=== PATIENT | female | born 1995 | race Caucasian/White ===

== ENCOUNTER 2016-07-14 21:02 | Emergency (ER) | payer MEDICAID ==
--- NOTE | 2016-07-14 21:46 | C.PDOC ---
History Of Present Illness GEN PARRA SINCE 1400. "WORSE THAN USUAL". +NV NO FEVER. NO RELIEF W TYL 1 TAB AND MOTRIN 1 TAB @ 1700. PS GETS PARRA "ONCE IN A BLUE" EXAM MILD DIST NONTOXIC HEENT NO PHOTOPHOBIA NO NUCHAL RIGID NEURO INTACT ABD NEG Time Seen by Provider: 07/14/16 21:30 Chief Complaint (Nursing): Headache History Per: Patient History/Exam Limitations: no limitations Onset/Duration Of Symptoms: Hrs Current Symptoms Are (Timing): Still Present Quality: "Pain" Associated Symptoms: Nausea, Vomiting. denies: Photophobia, Blurred Vision, Extremity Weakness Recent travel outside of the [place]: No Past Medical History Reviewed: Historical Data, Nursing Documentation, Vital Signs Vital Signs: Last Vital Signs Temp 98 F 07/14/16 21:28 Pulse 86 07/14/16 21:45 Resp 18 07/14/16 21:45 BP 122/68 07/14/16 21:45 Pulse Ox 99 07/14/16 22:46 Surgical History: Appendectomy Family History: States: Unknown Family Hx - Social History Hx Tobacco Use: No Hx Alcohol Use: Yes Hx Substance Use: No - Immunization History Hx Tetanus Toxoid Vaccination: No Hx Influenza Vaccination: No Hx Pneumococcal Vaccination: No Review Of Systems Except As Marked, All Systems Reviewed And Found Negative. Constitutional: Negative for: Fever, Chills Respiratory: Negative for: Cough, Shortness of Breath Gastrointestinal: Positive for: Nausea, Vomiting. Negative for: Abdominal Pain Skin: Negative for: Rash Neurological: Positive for: Headache. Negative for: Weakness, Numbness, Dizziness Physical Exam - Physical Exam Appears: Non-toxic, Other (MILD DISTRESS) Skin: Normal Color, Warm, Dry Head: Atraumatic, Normacephalic Eye(s): bilateral: PERRL, EOMI, Other (NO PHOTOPHOBIA) Neck: No Paracervical Tenderness, Supple (NO NUCHAL RIGIDITY) Chest: Symmetrical Cardiovascular: Rhythm Regular, No Murmur Respiratory: Normal Breath Sounds, No Rales, No Rhonchi, No Wheezing Gastrointestinal/Abdominal: Soft, No Tenderness, No Guarding, No Rebound Back: Normal Inspection Extremity: Normal ROM, Capillary Refill (< 2 SEC. ) Neurological/Psych: Other (NEURO INTACT) ED Course And Treatment - Laboratory Results Result Diagrams: 07/14/16 22:23 07/14/16 22:23 O2 Sat by Pulse Oximetry: 99 (RA) Pulse Ox Interpretation: Normal - CT Scan/US CT Head Other Rad Studies (CT/US): Read By Radiologist, Radiology Report Reviewed CT/US Interpretation: IMPRESSION: 1. No acute intracranial abnormality. Progress Note: CT HEAD, LABS, TORADOL, REGLAN, IMITREX ORDERED. ON REASSESSMENT , PT IMPROVED. CT NEGATIVE FOR ACUTE ABNORMALITY. ADVISED F/U AT THE CLINIC. Reevaluation Time: 22:45 Reassessment Condition: Improved Disposition Counseled Patient/Family Regarding: Studies Performed, Diagnosis, Need For Followup - Disposition Referrals: [facility] [Outside] [facility] [Outside] Disposition: HOME/ ROUTINE Disposition Time: 22:45 Condition: IMPROVED Instructions: Acute Headache (ED) - Clinical Impression Clinical Impression: Headache - Scribe Statement The provider has reviewed the documentation as recorded by the Kingsibjose Bowie Provider Scribe Attestation: All medical record entries made by the Scribe were at my direction and personally dictated by me. I have reviewed the chart and agree that the record accurately reflects my personal performance of the history, physical exam, medical decision making, and the department course for this patient. I have also personally directed, reviewed, and agree with the discharge instructions and disposition.
[2016-07-14 21:47] VITALS: O2SAT 99
[2016-07-14 22:26] LABS: BASO # 0.1 K/uL (0.0-0.2); BASO % 0.7 % (0.0-2.0); EOS # 0.1 K/uL (0.0-0.7); EOS % 1.4 % (0.0-4.0); HEMATOCRIT 35.9 % (34.0-47.0); LYMPH # 3.2 K/uL (1.0-4.3); LYMPH % 39.4 % (20.0-40.0); MEAN CELL VOLUME 91.4 fL (81.0-99.0); MEAN CORPUSCULAR HEMOGLOBIN 29.9 pg (27.0-31.0); MEAN CORPUSCULAR HGB CONC 32.7 g/dL (33.0-37.0); MEAN PLATELET VOLUME 9.8 fL (7.2-11.7); MONO # 0.4 K/uL (0.0-0.8); MONO % 5.2 % (0.0-10.0); RED CELL DISTRIBUTION WIDTH 13.6 % (11.5-14.5); WHITE BLOOD COUNT 8.1 K/uL (4.8-10.8)
[2016-07-14 22:38] LABS: CHLORIDE 101 mmol/L (98-107); POTASSIUM 3.9 mmol/L (3.6-5.2); SODIUM 138 mmol/L (132-148)
[2016-07-14 22:41] LABS: BLOOD UREA NITROGEN 7 mg/dL (7-17); CARBON DIOXIDE 28 mmol/L (22-30); GFR AFRICAN-AMERICAN > 60
[2016-07-14 22:42] LABS: CALCIUM 8.9 mg/dl (8.6-10.4); GLUCOSE,RANDOM 85 mg/dL (65-105)
--- NOTE | 2016-07-14 22:59 | CT ---
EXAM: CT Head Without Intravenous Contrast CLINICAL HISTORY: 21 years old, female; Pain; Headache; Headache not specified TECHNIQUE: Axial computed tomography images of the head/brain without intravenous contrast. This CT exam was performed using one or more of the following dose reduction techniques: automated exposure control, adjustment of the mA and/or kV according to patient size, and/or use of iterative reconstruction technique. COMPARISON: No relevant prior studies available. FINDINGS: Brain: No intracranial hemorrhage. No mass. No definite edema. Ventricles: No hydrocephalus. Bones/joints: No acute fracture. Soft tissues: Unremarkable. Sinuses: No acute sinusitis. Mastoid air cells: No mastoid effusion. Orbits: Unremarkable as visualized. IMPRESSION: 1. No acute intracranial abnormality. 2. Incidental/non-acute findings are described above.
[2016-07-14 23:15] VITALS: BP 98/63; PULSE 65; RESP 16; TEMP 97.3
== END 2016-07-14 23:15 | disposition home or self-care (01) ==
LOC: C.ER 21:02
DX: R51 Headache (principal)
CPT/HCPCS: 70450; 80048; 84703; 85025; 96372; 96374; 96375; 99284; J1885; J2765; J3030

== ENCOUNTER 2016-08-19 22:16 | Emergency (ER) | payer MEDICAID ==
[2016-08-19 22:32] VITALS: BP 99/65; PULSE 83; RESP 18; TEMP 98.5; O2SAT 98
--- NOTE | 2016-08-20 00:05 | C.PDOC ---
History Of Present Illness Patient is a 21 year old female who presents to the ER with a complaint of menstrual cramping and lightheadedness. Patient states she began her menstrual period yesterday and notes she has a heavy flow. Patient reports she is regular with her menstrual cycle and usually has a heavy flow; however she reports that she did not menstruate last month. Patient attempted to take motrin at home with no relief. Denies dysuria, hematuria or vaginal discharge. Time Seen by Provider: 08/19/16 22:47 Chief Complaint (Nursing): Abdominal Pain History Per: Patient History/Exam Limitations: no limitations Onset/Duration Of Symptoms: Days (Since yesterday) Current Symptoms Are (Timing): Still Present Location Of Pain/Discomfort: Suprapubic Radiation Of Pain To:: None Quality Of Discomfort: Cramping Associated Symptoms: denies: Urinary Symptoms, Other (Vaginal discharge) Exacerbating Factors: None Alleviating Factors: None Recent travel outside of the [place]: No Abnormal Vaginal Bleeding: No Past Medical History Reviewed: Historical Data, Nursing Documentation, Vital Signs Vital Signs: Last Vital Signs Temp 98.5 F 08/19/16 22:30 Pulse 83 08/19/16 22:30 Resp 18 08/19/16 22:30 BP 99/65 L 08/19/16 22:30 Pulse Ox 98 08/20/16 01:28 - Medical History PMH: No Chronic Diseases Surgical History: Appendectomy (2016) Family History: States: Unknown Family Hx - Social History Hx Tobacco Use: No Hx Alcohol Use: No Hx Substance Use: No - Immunization History Hx Tetanus Toxoid Vaccination: No Hx Influenza Vaccination: No Hx Pneumococcal Vaccination: No Review Of Systems Gastrointestinal: Positive for: Abdominal Pain Genitourinary: Positive for: Vaginal Bleeding. Negative for: Dysuria, Hematuria , Vaginal Discharge Physical Exam - Physical Exam Appears: Non-toxic Skin: Normal Color, Warm, Dry Head: Atraumatic, Normacephalic Eye(s): bilateral: Normal Inspection, Conjunctiva Pale (no pallor) Oral Mucosa: Moist Chest: Symmetrical, No Tenderness Cardiovascular: Rhythm Regular, No Murmur Respiratory: Normal Breath Sounds, No Rales, No Wheezing Gastrointestinal/Abdominal: Soft, Tenderness (b/l Suprapubic- mild), No Distention, No Guarding Back: Normal Inspection, No CVA Tenderness Pelvic: Other (Patient refused.) Neurological/Psych: Oriented x3, Normal Speech, Normal Cognition Gait: Steady ED Course And Treatment O2 Sat by Pulse Oximetry: 98 (Room air) Pulse Ox Interpretation: Normal Progress Note: Patient refused pelvic exam, no longer dizzy just requesting pain meds. Toradol IM administered with some improvement of sx. Disposition - Disposition Referrals: Sid Villafuerte [Staff Provider] - Disposition: HOME/ ROUTINE Disposition Time: 00:03 Condition: STABLE Additional Instructions: Please follow up with [facility] Take meds as directed Increase PO fluids Return to ER if worse Prescriptions: Naproxen [Naprosyn] 1 tab PO BID PRN #20 tab PRN Reason: Pain Instructions: Dysmenorrhea (ED) Forms: Work Excuse - Clinical Impression Clinical Impression: Dysmenorrhea - Scribe Statement The provider has reviewed the documentation as recorded by the Scribjose Guidry All medical record entries made by the Scribe were at my direction and personally dictated by me. I have reviewed the chart and agree that the record accurately reflects my personal performance of the history, physical exam, medical decision making, and the department course for this patient. I have also personally directed, reviewed, and agree with the discharge instructions and disposition.
== END 2016-08-20 00:08 | disposition home or self-care (01) ==
LOC: SUPCPDRO 22:16 → C.ER 22:16
DX: N94.6 Dysmenorrhea, unspecified (principal)
CPT/HCPCS: 96372; 99283; J1885

== ENCOUNTER 2016-09-16 21:47 | Emergency (ER) | payer MEDICAID ==
[2016-09-16] MEDS ORDERED: Sodium Chloride 0.9% 1,000 ML IV ONE (22:03)
--- NOTE | 2016-09-16 22:16 | C.PDOC ---
History Of Present Illness 21 year old female with no PMHx who presents to the ER with a complaint of a abdominal pain, vomiting, and diarrhea since yesterday. LMP was 08/16; denies fever or other complaints Time Seen by Provider: 09/16/16 21:58 Chief Complaint (Nursing): Abdominal Pain History Per: Patient History/Exam Limitations: no limitations Onset/Duration Of Symptoms: Hrs Current Symptoms Are (Timing): Still Present Location Of Pain/Discomfort: Diffuse Radiation Of Pain To:: None Quality Of Discomfort: Unable To Describe Associated Symptoms: Vomiting, Diarrhea. denies: Fever, Chills Exacerbating Factors: None Alleviating Factors: None Recent travel outside of the [place]: No Abnormal Vaginal Bleeding: No Past Medical History Reviewed: Historical Data, Nursing Documentation, Vital Signs Vital Signs: Last Vital Signs Temp 98.5 F 09/17/16 00:36 Pulse 75 09/17/16 00:36 Resp 18 09/17/16 00:36 BP 95/58 L 09/17/16 00:36 Pulse Ox 99 09/17/16 13:51 - Medical History PMH: No Chronic Diseases Surgical History: Appendectomy (2016) Family History: States: Unknown Family Hx - Social History Hx Tobacco Use: No Hx Alcohol Use: No Hx Substance Use: No - Immunization History Hx Tetanus Toxoid Vaccination: No Hx Influenza Vaccination: No Hx Pneumococcal Vaccination: No Review Of Systems Except As Marked, All Systems Reviewed And Found Negative. Constitutional: Negative for: Fever, Chills Gastrointestinal: Positive for: Vomiting, Abdominal Pain, Diarrhea Genitourinary: Negative for: Dysuria, Hematuria Physical Exam - Physical Exam Appears: Non-toxic, No Acute Distress, Other (Eating chips) Skin: Normal Color, Warm, Dry Head: Atraumatic, Normacephalic Oral Mucosa: Moist Chest: Symmetrical, No Tenderness Cardiovascular: Rhythm Regular, No Murmur Respiratory: Normal Breath Sounds, No Rales, No Rhonchi, No Wheezing Gastrointestinal/Abdominal: Soft, Tenderness (Mild nonfocal) Neurological/Psych: Oriented x3, Normal Speech, Normal Cognition ED Course And Treatment - Laboratory Results Result Diagrams: 09/16/16 22:14 09/16/16 22:14 O2 Sat by Pulse Oximetry: 99 (Room air) Pulse Ox Interpretation: Normal Medical Decision Making Medical Decision Making: Impression: 21 female with abdominal pain. pt in nad, on phone, minimal ttp, eating chips bedside Plan: * Blood work * Urinalysis * Zofran * IV fluids * * 1200: pain resolved. pt took po, on phone, in nad. advise outpt f/u and return precautions Disposition - Disposition Referrals: [facility] [Outside] [facility] [Outside] Ricky Zepeda MD [Staff Provider] - Disposition: HOME/ ROUTINE Disposition Time: 12:30 Condition: STABLE Additional Instructions: follow up with your doctor. return to er with worsening symptoms or concerns. please see specialist. Instructions: Acute Abdominal Pain (ED) Forms: Work Excuse - Clinical Impression Clinical Impression: Abdominal pain - Scribe Statement The provider has reviewed the documentation as recorded by the Scribe Arnaldo Guidry All medical record entries made by the Scribe were at my direction and personally dictated by me. I have reviewed the chart and agree that the record accurately reflects my personal performance of the history, physical exam, medical decision making, and the department course for this patient. I have also personally directed, reviewed, and agree with the discharge instructions and disposition.
[2016-09-16 22:25] LABS: BASO % 0.7 % (0.0-2.0); EOS # 0.1 K/uL (0.0-0.7); EOS % 1.2 % (0.0-4.0); HEMOGLOBIN 11.8 g/dL (11.0-16.0); LYMPH # 2.2 K/uL (1.0-4.3); LYMPH % 43.1 % (20.0-40.0); MEAN CORPUSCULAR HEMOGLOBIN 30.7 pg (27.0-31.0); MEAN CORPUSCULAR HGB CONC 32.8 g/dL (33.0-37.0); MEAN PLATELET VOLUME 9.7 fL (7.2-11.7); MONO # 0.3 K/uL (0.0-0.8); MONO % 6.1 % (0.0-10.0); NEUT # 2.5 K/uL (1.8-7.0); NEUT % 48.9 % (50.0-75.0); NRBC % 0.2 % (0.0-2.0); RBC 3.86 Mil/uL (3.80-5.20); RED CELL DISTRIBUTION WIDTH 13.2 % (11.5-14.5); WHITE BLOOD COUNT 5.2 K/uL (4.8-10.8)
[2016-09-16 22:27] LABS: MEAN CELL VOLUME 93.4 fL (81.0-99.0)
[2016-09-16 22:29] LABS: ALBUMIN 3.9 g/dL (3.5-5.0)
[2016-09-16 22:31] LABS: GFR AFRICAN-AMERICAN > 60; GFR NON-AFRICAN AMERICAN > 60
[2016-09-16 22:32] LABS: ALB/GLOB RATIO 1.3 (1.0-2.1); ALT/SGPT 22 U/L (9-52); AST/SGOT 22 U/L (14-36); BLOOD UREA NITROGEN 9 mg/dL (7-17); CALCIUM 8.6 mg/dl (8.6-10.4); LIPASE 28 U/L (23-300)
[2016-09-16] MEDS ORDERED: Sodium Chloride 0.9% 1,000 ML ONE (22:39)
[2016-09-17 00:24] LABS: SQUAMOUS EPITHIAL 2 /hpf (0-5); URINE BILIRUBIN NEGATIVE (NEGATIVE); URINE BLOOD NEGATIVE (NEGATIVE); URINE CLARITY Clear (Clear); URINE COLOR Yellow (YELLOW); URINE GLUCOSE (UA) NORMAL (Normal); URINE LEUKOCYTE ESTERASE NEG Leu/uL (Negative); URINE NITRATE NEGATIVE (NEGATIVE); URINE PROTEIN NEGATIVE (NEGATIVE); URINE UROBILINOGEN NORMAL mg/dL (0.2-1.0)
[2016-09-17 00:31] LABS: HCG,QUALITATIVE URINE NEGATIVE (NEGATIVE)
[2016-09-17 00:36] VITALS: BP 95/58; PULSE 75; RESP 18; TEMP 98.5
[2016-09-17 13:52] VITALS: O2SAT 99
== END 2016-09-17 01:03 | disposition home or self-care (01) ==
LOC: C.ER 21:47
DX: R10.84 Generalized abdominal pain (principal)
CPT/HCPCS: 80053; 81001; 83690; 84703; 85025; 96374; 99284; J2405; J7040

== ENCOUNTER 2016-10-04 01:16 | Emergency (ER) | payer MEDICAID ==
[2016-10-04 01:51] VITALS: PULSE 80; RESP 14
[2016-10-04 02:14] LABS: HCG,QUALITATIVE URINE NEGATIVE (NEGATIVE); SQUAMOUS EPITHIAL 1 /hpf (0-5); URINE BILIRUBIN NEGATIVE (NEGATIVE); URINE BLOOD NEGATIVE (NEGATIVE); URINE CLARITY Clear (Clear); URINE COLOR Yellow (YELLOW); URINE GLUCOSE (UA) NORMAL (Normal); URINE LEUKOCYTE ESTERASE NEG Leu/uL (Negative); URINE NITRATE NEGATIVE (NEGATIVE); URINE PROTEIN NEGATIVE (NEGATIVE); URINE UROBILINOGEN NORMAL mg/dL (0.2-1.0)
[2016-10-04] MEDS ORDERED: cefTRIAXone (Rocephin) 250 mg Inj IM STA (02:59)
--- NOTE | 2016-10-04 03:33 | C.PDOC ---
History Of Present Illness 21 y/o female presents to ED requesting STD testing and evaluation. Patient states she is having unprotected sex with her boyfriend who was recently treated for STI's. Patient denies abdominal pain, urinary symptoms, vaginal bleeding or discharge. No other complaints at this time. LMP mid August Time Seen by Provider: 10/04/16 02:33 Chief Complaint (Nursing): Female Genitourinary History Per: Patient History/Exam Limitations: no limitations Onset/Duration Of Symptoms: Days Current Symptoms Are (Timing): Still Present Past Medical History Reviewed: Historical Data, Nursing Documentation, Vital Signs Vital Signs: Last Vital Signs Temp 98 F 10/04/16 04:23 Pulse 80 10/04/16 04:23 Resp 14 10/04/16 04:23 BP 110/70 10/04/16 04:23 Pulse Ox 98 10/04/16 04:57 Surgical History: Appendectomy (2016) Family History: States: No Known Family Hx - Social History Hx Tobacco Use: No Hx Alcohol Use: No Hx Substance Use: No - Immunization History Hx Tetanus Toxoid Vaccination: No Hx Influenza Vaccination: No Hx Pneumococcal Vaccination: No Review Of Systems Constitutional: Negative for: Fever, Chills Gastrointestinal: Negative for: Abdominal Pain Genitourinary: Negative for: Dysuria, Frequency, Vaginal Discharge, Vaginal Bleeding Skin: Negative for: Rash Physical Exam - Physical Exam Appears: Non-toxic, No Acute Distress Skin: Warm, Dry Head: Atraumatic, Normacephalic Oral Mucosa: Moist Neck: Normal ROM, Supple Chest: Symmetrical Cardiovascular: Rhythm Regular Respiratory: Normal Breath Sounds, No Rales, No Rhonchi, No Wheezing Gastrointestinal/Abdominal: Soft, No Tenderness, No Guarding, No Rebound Back: No CVA Tenderness Extremity: Normal ROM, Capillary Refill (<2 seconds) Neurological/Psych: Oriented x3 ED Course And Treatment O2 Sat by Pulse Oximetry: 98 (RA) Pulse Ox Interpretation: Normal Medical Decision Making Medical Decision Making: Patient treated for STI's Disposition Counseled Patient/Family Regarding: Studies Performed, Diagnosis, Need For Followup - Disposition Referrals: [facility] [Outside] [facility] [Outside] Disposition: HOME/ ROUTINE Disposition Time: 04:15 Condition: STABLE Additional Instructions: 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 Return to ER for any worsening symptoms. Instructions: Sexually Transmitted Diseases (ED), Safe Sex (ED) Forms: General Discharge Instructions, [facility] (Greek) - Clinical Impression Clinical Impression: Exposure to sexually transmitted disease (STD) - Scribe Statement The provider has reviewed the documentation as recorded by the Kingsibjose Lovell All medical record entries made by the Anastasiya were at my direction and personally dictated by me. I have reviewed the chart and agree that the record accurately reflects my personal performance of the history, physical exam, medical decision making, and the department course for this patient. I have also personally directed, reviewed, and agree with the discharge instructions and disposition.
[2016-10-04 04:24] VITALS: BP 110/70; TEMP 98
[2016-10-04 05:02] VITALS: O2SAT 98
== END 2016-10-04 04:24 | disposition home or self-care (01) ==
LOC: C.ER 01:16
DX: Z20.2 Contact with and (suspected) exposure to infections with a predominantly sexual mode of transmission (principal)
CPT/HCPCS: 81001; 84703; 87086; 96372; 99283; J0696

== ENCOUNTER 2016-11-19 19:43 | Emergency (ER) | payer MEDICAID ==
[2016-11-19 20:26] VITALS: BMI 20.6
[2016-11-19 20:31] VITALS: RESP 18; TEMP 98.2; O2SAT 98
[2016-11-19] MEDS ORDERED: Sodium Chloride 0.9% 1,000 ML IV STA (20:32)
[2016-11-19 20:56] LABS: BASO % 0.6 % (0.0-2.0); EOS # 0.1 K/uL (0.0-0.7); EOS % 1.2 % (0.0-4.0); HEMATOCRIT 35.3 % (34.0-47.0); LYMPH # 2.4 K/uL (1.0-4.3); LYMPH % 35.2 % (20.0-40.0); MEAN CORPUSCULAR HEMOGLOBIN 31.6 pg (27.0-31.0); MEAN CORPUSCULAR HGB CONC 33.6 g/dL (33.0-37.0); MEAN PLATELET VOLUME 9.3 fL (7.2-11.7); MONO # 0.3 K/uL (0.0-0.8); MONO % 4.9 % (0.0-10.0); WHITE BLOOD COUNT 6.7 K/uL (4.8-10.8)
[2016-11-19 21:01] LABS: CHLORIDE 107 mmol/L (98-107); SODIUM 141 mmol/L (132-148)
[2016-11-19 21:02] LABS: POTASSIUM 4.2 mmol/L (3.6-5.2)
[2016-11-19 21:03] LABS: AMYLASE 87 U/L (30-110)
[2016-11-19 21:04] LABS: ALB/GLOB RATIO 1.4 (1.0-2.1); ALKALINE PHOSPHATASE 42 U/L (38-126); ALT/SGPT 20 U/L (9-52); AST/SGOT 20 U/L (14-36); BILIRUBIN,TOTAL 0.5 mg/dL (0.2-1.3); BLOOD UREA NITROGEN 13 mg/dL (7-17); CARBON DIOXIDE 25 mmol/L (22-30); GFR AFRICAN-AMERICAN > 60; GLUCOSE,RANDOM 64 mg/dL (65-105); TOTAL PROTEIN 6.9 g/dL (6.3-8.3)
[2016-11-19 21:05] LABS: CALCIUM 8.9 mg/dl (8.6-10.4)
[2016-11-19] MEDS ORDERED: Sodium Chloride 0.9% 1,000 ML ONE (21:09)
[2016-11-19] MEDS ORDERED: Belladonna-Phenobarbital PO STA (22:00)
[2016-11-19] MEDS ORDERED: Belladonna-Phenobarbital ONE (22:06)
[2016-11-19 22:09] LABS: RBC URINE 2 /hpf (0-3); URINE BILIRUBIN NEGATIVE (NEGATIVE); URINE BLOOD NEGATIVE (NEGATIVE); URINE COLOR Yellow (YELLOW); URINE GLUCOSE (UA) NORMAL (Normal); URINE KETONE NEGATIVE (NEGATIVE); URINE LEUKOCYTE ESTERASE NEG Leu/uL (Negative); URINE PROTEIN NEGATIVE (NEGATIVE); URINE UROBILINOGEN NORMAL mg/dL (0.2-1.0); WBC URINE < 1 /hpf (0-5)
[2016-11-19 22:38] VITALS: BP 96/59; PULSE 71
--- NOTE | 2016-11-19 22:51 | C.PDOC ---
History Of Present Illness 21 year old female presents to the ED for evaluation of abdominal cramping and diarrhea which began around 2 days ago. Patient denies fever, chills, vomiting, or sick contacts. Chief Complaint (Nursing): Abdominal Pain History Per: Patient History/Exam Limitations: no limitations Onset/Duration Of Symptoms: Days (2) Current Symptoms Are (Timing): Still Present Location Of Pain/Discomfort: Diffuse Radiation Of Pain To:: None Quality Of Discomfort: Cramping, "Pain" Associated Symptoms: Diarrhea. denies: Fever, Chills, Vomiting Additional History Per: Patient Abnormal Vaginal Bleeding: No Past Medical History Reviewed: Historical Data, Nursing Documentation, Vital Signs Vital Signs: Last Vital Signs Temp 98.2 F 11/19/16 22:37 Pulse 71 11/19/16 22:37 Resp 18 11/19/16 22:37 BP 96/59 L 11/19/16 22:37 Pulse Ox 98 11/19/16 22:52 - Medical History PMH: No Chronic Diseases Surgical History: Appendectomy (2016) Family History: States: Unknown Family Hx - Social History Hx Tobacco Use: No Hx Alcohol Use: No Hx Substance Use: No - Immunization History Hx Tetanus Toxoid Vaccination: No Hx Influenza Vaccination: No Hx Pneumococcal Vaccination: No Review Of Systems Constitutional: Negative for: Fever, Chills Gastrointestinal: Positive for: Abdominal Pain, Diarrhea. Negative for: Vomiting Physical Exam - Physical Exam Appears: Non-toxic, No Acute Distress Skin: Normal Color, Warm, Dry Head: Normacephalic Eye(s): bilateral: Normal Inspection Oral Mucosa: Moist Neck: Supple Chest: Symmetrical, No Deformity Cardiovascular: Rhythm Regular Respiratory: Normal Breath Sounds Gastrointestinal/Abdominal: Soft, Tenderness (to bilateral lower abdominal quadrants ), No Guarding, No Rebound Extremity: Normal ROM, Capillary Refill (less than 2 seconds ) Neurological/Psych: Normal Speech, Normal Cognition Gait: Steady ED Course And Treatment - Laboratory Results Result Diagrams: 11/19/16 20:50 11/19/16 20:50 O2 Sat by Pulse Oximetry: 98 (on RA) Pulse Ox Interpretation: Normal Progress Note: labs ordered and reviewed. Patient received PO, Flagyl PO, and IV Fluids. On re-evaluation, patient notes her symptoms have slightly improved but she is still in pain. Patient recieved Ciproflaxin PO. On reassessment, patient is resting comfortably, showing no signs of distress, and reports an improvement in her pain. Patient is stable for discharge and is advised to follow up with her PMD within 1-2 days for furher evaluation. Reassessment Condition: Improved Disposition - Disposition Referrals: Clinic,Med Surg [Primary Care Provider] - Disposition: HOME/ ROUTINE Disposition Time: 22:44 Additional Instructions: Follow up with PMD within 1-2 days. Return to ED if feel worse. 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 - Scribe Statement The provider has reviewed the documentation as recorded by the Scribe (Etelvina Mccracken) All medical record entries made by the Scribe were at my direction and personally dictated by me. I have reviewed the chart and agree that the record accurately reflects my personal performance of the history, physical exam, medical decision making, and the department course for this patient. I have also personally directed, reviewed, and agree with the discharge instructions and disposition.
== END 2016-11-19 23:02 | disposition home or self-care (01) ==
LOC: C.ER 19:43 → SUPCPDRO 19:43 → C.ER 23:02
DX: K52.9 Noninfective gastroenteritis and colitis, unspecified (principal)
CPT/HCPCS: 80053; 81001; 82150; 83690; 84703; 85025; 96360; 99284; J7040

== ENCOUNTER 2016-12-02 21:37 | Emergency (ER) | payer MEDICAID ==
[2016-12-02 21:37] VITALS: BMI 20.6
[2016-12-02 22:17] VITALS: RESP 20; O2SAT 100
[2016-12-02] MEDS ORDERED: Sodium Chloride 0.9% 2,000 ML IV ONE (22:24)
--- NOTE | 2016-12-02 22:24 | C.PDOC ---
History Of Present Illness Patient presents to the ER with a complaint abdominal cramping that began today. Patient states she thinks she might have blacked out and began vomiting. Patient report she has been taking 600mg motrin every 2 hours since 5am; denies fever or chills. Time Seen by Provider: 12/02/16 22:24 Chief Complaint (Nursing): Abdominal Pain History Per: Patient History/Exam Limitations: no limitations Onset/Duration Of Symptoms: Hrs Current Symptoms Are (Timing): Still Present Severity: Mild Pain Scale Rating Of: 4 Location Of Pain/Discomfort: Diffuse Radiation Of Pain To:: None Quality Of Discomfort: Cramping Associated Symptoms: Vomiting. denies: Fever, Chills Exacerbating Factors: None Alleviating Factors: None Recent travel outside of the [place]: No Abnormal Vaginal Bleeding: No Past Medical History Reviewed: Historical Data, Nursing Documentation, Vital Signs Vital Signs: Last Vital Signs Temp 98.5 F 12/02/16 22:10 Pulse 74 12/02/16 22:10 Resp 20 12/02/16 22:10 BP 107/74 12/02/16 22:10 Pulse Ox 100 12/03/16 00:17 - Medical History PMH: No Chronic Diseases Surgical History: Appendectomy (2016) Family History: States: Unknown Family Hx - Social History Hx Tobacco Use: No Hx Alcohol Use: No Hx Substance Use: No - Immunization History Hx Tetanus Toxoid Vaccination: No Hx Influenza Vaccination: No Hx Pneumococcal Vaccination: No Review Of Systems Constitutional: Negative for: Fever, Chills Gastrointestinal: Positive for: Vomiting, Abdominal Pain Physical Exam - Physical Exam Appears: Non-toxic Skin: Warm, Dry Head: Normacephalic Oral Mucosa: Moist Chest: Symmetrical Cardiovascular: Rhythm Regular Respiratory: No Rales, No Rhonchi, No Wheezing Gastrointestinal/Abdominal: Soft, Tenderness (diffuse), No Guarding, No Rebound Neurological/Psych: Oriented x3 ED Course And Treatment - Laboratory Results Result Diagrams: 12/02/16 23:13 12/02/16 23:13 ECG: Interpreted By Me, Viewed By Me ECG Rhythm: Sinus Rhythm (65), Nonspecific Changes O2 Sat by Pulse Oximetry: 100 (Room air) Pulse Ox Interpretation: Normal Progress Note: EKG, blood work, and urinalysis ordered. Pepcid, zofran, and IV fluids administered. Reevaluation Time: 00:43 Reassessment Condition: Improved Disposition Counseled Patient/Family Regarding: Studies Performed, Diagnosis, Need For Followup, Rx Given - Disposition Referrals: [facility] [Outside] [facility] [Outside] Disposition: HOME/ ROUTINE Disposition Time: 22:24 Condition: FAIR Prescriptions: Nitrofurantoin Macrocrystals [Macrobid] 1 cap PO BID #14 cap traMADol [Ultram] 50 mg PO TID PRN #9 tab PRN Reason: Pain, Severe (8-10) Instructions: Abdominal Pain (ED), Urinary Tract Infection in Women (DC) Forms: [employer] (Northern Irish) - Clinical Impression Clinical Impression: Abdominal pain, UTI (urinary tract infection) - Scribe Statement The provider has reviewed the documentation as recorded by the Scribe Arnaldo Guidry All medical record entries made by the Scribe were at my direction and personally dictated by me. I have reviewed the chart and agree that the record accurately reflects my personal performance of the history, physical exam, medical decision making, and the department course for this patient. I have also personally directed, reviewed, and agree with the discharge instructions and disposition.
[2016-12-02] MEDS ORDERED: Sodium Chloride 0.9% 1,000 ML ONE ×2 (22:51→23:29)
[2016-12-02 23:17] LABS: BASO # 0.1 K/uL (0.0-0.2); BASO % 0.7 % (0.0-2.0); EOS % 0.6 % (0.0-4.0); LYMPH # 2.2 K/uL (1.0-4.3); LYMPH % 29.5 % (20.0-40.0); MEAN CELL VOLUME 93.7 fL (81.0-99.0); MEAN CORPUSCULAR HEMOGLOBIN 31.9 pg (27.0-31.0); MEAN CORPUSCULAR HGB CONC 34.1 g/dL (33.0-37.0); MONO # 0.4 K/uL (0.0-0.8); MONO % 5.5 % (0.0-10.0); RED CELL DISTRIBUTION WIDTH 12.6 % (11.5-14.5); WHITE BLOOD COUNT 7.3 K/uL (4.8-10.8)
[2016-12-02 23:33] LABS: CHLORIDE 102 mmol/L (98-107); SODIUM 142 mmol/L (132-148)
[2016-12-02 23:34] LABS: POTASSIUM 3.6 mmol/L (3.6-5.2)
[2016-12-02 23:36] LABS: ALB/GLOB RATIO 1.3 (1.0-2.1); ALKALINE PHOSPHATASE 47 U/L (38-126); ALT/SGPT 26 U/L (9-52); AST/SGOT 28 U/L (14-36); BILIRUBIN,TOTAL 0.6 mg/dL (0.2-1.3); BLOOD UREA NITROGEN 11 mg/dL (7-17); CALCIUM 8.8 mg/dl (8.6-10.4); CARBON DIOXIDE 24 mmol/L (22-30); GFR AFRICAN-AMERICAN > 60; GLUCOSE,RANDOM 77 mg/dL (65-105); TOTAL PROTEIN 7.1 g/dL (6.3-8.3)
[2016-12-02 23:37] LABS: ALCOHOL SERUM < 10 mg/dl (0-10)
[2016-12-03 00:10] LABS: VENOUS BLOOD GAS BASE EXCESS -8.1 mmol/L (0.0-2.0); VENOUS BLOOD GAS PCO2 33 mmHg (40-60); VENOUS BLOOD PH 7.32 (7.32-7.43)
[2016-12-03 00:20] LABS: RBC URINE 331 /hpf (0-3); URINE BILIRUBIN NEGATIVE (NEGATIVE); URINE BLOOD 3+ (NEGATIVE); URINE COLOR Yellow (YELLOW); URINE GLUCOSE (UA) NORMAL (Normal); URINE KETONE NEGATIVE (NEGATIVE); URINE LEUKOCYTE ESTERASE 3+ Leu/uL (Negative); URINE PROTEIN 2+ mg/dL (NEGATIVE); URINE UROBILINOGEN NORMAL mg/dL (0.2-1.0); WBC URINE 163 /hpf (0-5)
[2016-12-03] MEDS ORDERED: cefTRIAXone IV 1 gm in Dextros 50 ML IVPB ONE ×2 (00:26→01:01)
[2016-12-03 01:05] VITALS: BP 119/70; PULSE 83; TEMP 98
--- NOTE | 2016-12-04 11:56 | CARD ---
APPROVED REPORT EKG Measurement Heart [id number] <Conclusion> Normal sinus rhythm with sinus arrhythmia Normal ECG
== END 2016-12-03 01:14 | disposition home or self-care (01) ==
LOC: C.ER 21:37
DX: N39.0 Urinary tract infection, site not specified (principal); R10.9 Unspecified abdominal pain
CPT/HCPCS: 80053; 80320; 80324; 80329; 80345; 80346; 80349; 80353; 80358; 80361; 81001; 82803; 83992; 84703; 85025; 93005; 96361; 96374; 96375; 99285; J0696; J2405; J7040

== ENCOUNTER 2016-12-14 19:41 | Emergency (ER) | payer MEDICAID ==
[2016-12-14 19:41] VITALS: BMI 20.6
[2016-12-14 19:49] VITALS: RESP 20
[2016-12-14] MEDS ORDERED: Sodium Chloride 0.9% 1,000 ML IV ONE (19:52)
[2016-12-14] MEDS ORDERED: Sodium Chloride 0.9% 1,000 ML ONE (20:11)
[2016-12-14 20:12] LABS: BASO % 0.4 % (0.0-2.0); EOS # 0.1 K/uL (0.0-0.7); EOS % 0.7 % (0.0-4.0); HEMATOCRIT 40.6 % (34.0-47.0); LYMPH # 1.7 K/uL (1.0-4.3); LYMPH % 23.1 % (20.0-40.0); MEAN CELL VOLUME 94.3 fL (81.0-99.0); MEAN CORPUSCULAR HEMOGLOBIN 31.3 pg (27.0-31.0); MEAN CORPUSCULAR HGB CONC 33.2 g/dL (33.0-37.0); MEAN PLATELET VOLUME 9.3 fL (7.2-11.7); MONO # 0.5 K/uL (0.0-0.8); MONO % 6.8 % (0.0-10.0); RED CELL DISTRIBUTION WIDTH 13.2 % (11.5-14.5); WHITE BLOOD COUNT 7.4 K/uL (4.8-10.8)
[2016-12-14 20:19] LABS: CHLORIDE 103 mmol/L (98-107)
[2016-12-14 20:20] LABS: SODIUM 136 mmol/L (132-148)
[2016-12-14 20:22] LABS: AST/SGOT 20 U/L (14-36); BILIRUBIN,TOTAL 0.4 mg/dL (0.2-1.3); CARBON DIOXIDE 21 mmol/L (22-30); GFR AFRICAN-AMERICAN > 60
[2016-12-14 20:23] LABS: ALB/GLOB RATIO 1.1 (1.0-2.1); ALKALINE PHOSPHATASE 53 U/L (38-126); ALT/SGPT 26 U/L (9-52); BLOOD UREA NITROGEN 11 mg/dL (7-17); CALCIUM 9.2 mg/dl (8.6-10.4); GLUCOSE,RANDOM 60 mg/dL (65-105); TOTAL PROTEIN 8.4 g/dL (6.3-8.3)
[2016-12-14 20:32] LABS: RBC URINE < 1 /hpf (0-3); URINE BILIRUBIN NEGATIVE (NEGATIVE); URINE BLOOD NEGATIVE (NEGATIVE); URINE COLOR Straw (YELLOW); URINE GLUCOSE (UA) NORMAL (Normal); URINE KETONE NEGATIVE (NEGATIVE); URINE LEUKOCYTE ESTERASE NEG Leu/uL (Negative); URINE PROTEIN 1+ mg/dL (NEGATIVE); URINE UROBILINOGEN NORMAL mg/dL (0.2-1.0); WBC URINE 16 /hpf (0-5)
[2016-12-14 22:48] VITALS: BP 117/81; PULSE 63; TEMP 98.2; O2SAT 99
--- NOTE | 2016-12-15 05:15 | C.PDOC ---
History Of Present Illness 21 year old female presents to the ED with complaints of two episodes of vomiting beginning earlier today with associated mild nausea. She states she ate food art home and is currently hungry. Patient denies fever, chest pain, shortness of breath, cough, dysuria, hematuira, or blood in the stool. Chief Complaint (Nursing): GI Problem History Per: Patient History/Exam Limitations: no limitations Onset/Duration Of Symptoms: Hrs Current Symptoms Are (Timing): Still Present Radiation Of Pain To:: None Associated Symptoms: Nausea, Vomiting. denies: Fever, Chills, Diarrhea Exacerbating Factors: None Alleviating Factors: None Recent travel outside of the [place]: No Abnormal Vaginal Bleeding: No Past Medical History Reviewed: Historical Data, Nursing Documentation, Vital Signs Vital Signs: Last Vital Signs Temp 98.2 F 12/14/16 22:47 Pulse 63 12/14/16 22:47 Resp 20 12/14/16 22:47 BP 117/81 12/14/16 22:47 Pulse Ox 99 12/15/16 05:22 Surgical History: Appendectomy (2016) Family History: States: Unknown Family Hx - Social History Hx Tobacco Use: No Hx Alcohol Use: No Hx Substance Use: No - Immunization History Hx Tetanus Toxoid Vaccination: No Hx Influenza Vaccination: No Hx Pneumococcal Vaccination: No Review Of Systems Constitutional: Negative for: Fever, Chills Respiratory: Negative for: Cough, Shortness of Breath Gastrointestinal: Positive for: Nausea, Vomiting. Negative for: Abdominal Pain , Diarrhea, Hematochezia Genitourinary: Negative for: Dysuria, Hematuria Physical Exam - Physical Exam Appears: Well, Non-toxic, No Acute Distress, Other (Patient is laughing and texting on her cell phone during exam ) Skin: Warm, Dry Head: Atraumatic Oral Mucosa: Moist Neck: Supple Chest: Symmetrical, No Deformity Cardiovascular: Rhythm Regular, No Murmur Respiratory: Normal Breath Sounds, No Rales, No Rhonchi, No Wheezing Gastrointestinal/Abdominal: Soft, No Tenderness, No Distention, No Guarding, No Rebound Extremity: Normal ROM, No Tenderness Neurological/Psych: Oriented x3 ED Course And Treatment - Laboratory Results Result Diagrams: 12/14/16 20:08 12/14/16 20:08 O2 Sat by Pulse Oximetry: 99 (RA) Progress Note: Labs were ordered and patient was given Pepcid, Zofran, and IV fluids. Upon re-evaluation, patient denies abdominal pain and is hungry. Patient would like to be discharged home. Disposition - Disposition Referrals: Kun Persaud, [Non-Staff] - Disposition: HOME/ ROUTINE Disposition Time: 20:40 Condition: GOOD Additional Instructions: Thank you for letting us take care of you today. You were treated for gastritis. The emergency medical care you received today was directed at your acute symptoms. If you were prescribed any medication, please fill it and take as directed. It may take several days for your symptoms to resolve. Return to the Emergency Department if your symptoms worsen, do not improve, or if you have any other problems. Please contact your doctor or call one of the physicians/clinics you have been referred to that are listed on the Patient Visit Information form that is included in your discharge packet. Bring any paperwork you were given at discharge with you along with any medications you are taking to your follow up visit. Our treatment cannot replace ongoing medical care by a primary care provider (PCP) outside of the emergency department. Thank you for allowing the [facility] team to be part of your care today. Follow up with your doctor in 2-3 days for re-evaluation and further management. Prescriptions: Ranitidine HCl [Zantac] 150 mg PO BID #20 tablet Instructions: Acute Nausea and Vomiting (ED) Forms: [employer] (Uzbek) - Clinical Impression Clinical Impression: Vomiting - Scribe Statement The provider has reviewed the documentation as recorded by the Scribe Soledad Edwards All medical record entries made by the Scribe were at my direction and personally dictated by me. I have reviewed the chart and agree that the record accurately reflects my personal performance of the history, physical exam, medical decision making, and the department course for this patient. I have also personally directed, reviewed, and agree with the discharge instructions and disposition.
== END 2016-12-14 22:59 | disposition home or self-care (01) ==
LOC: C.ER 19:41
DX: R11.10 Vomiting, unspecified (principal)
CPT/HCPCS: 80053; 81001; 83690; 85025; 96361; 96374; 96375; 99285; J2405; J7040

== ENCOUNTER 2017-02-15 11:24 | Emergency (ER) | payer SELFPAY ==
[2017-02-15 11:24] VITALS: BMI 20.6
[2017-02-15 12:56] LABS: RBC URINE 7 /hpf (0-3); URINE BACTERIA FEW (<OCC); URINE BILIRUBIN NEGATIVE (NEGATIVE); URINE BLOOD NEGATIVE (NEGATIVE); URINE COLOR Yellow (YELLOW); URINE GLUCOSE (UA) NORMAL (Normal); URINE KETONE NEGATIVE (NEGATIVE); URINE LEUKOCYTE ESTERASE 1+ Leu/uL (Negative); URINE PROTEIN NEGATIVE (NEGATIVE); URINE UROBILINOGEN NORMAL mg/dL (0.2-1.0); WBC URINE 24 /hpf (0-5)
[2017-02-15] MEDS ORDERED: cefTRIAXone (Rocephin) 250 mg Inj IM STA (13:04)
--- NOTE | 2017-02-15 13:45 | C.PDOC ---
History Of Present Illness 22 yr old F states she has suprapubic pain for a day without dysuria. Pt denies fever, n/v, vaginal d/c. pt's boyfriend told her she needs to be checked for STD , however, unclear what std he has. Pt denies hx of STDs. Pt had a loose BM, no diarrhea in ED. Time Seen by Provider: 02/15/17 11:38 Chief Complaint (Nursing): Abdominal Pain History Per: Patient History/Exam Limitations: no limitations Onset/Duration Of Symptoms: Days (1) Current Symptoms Are (Timing): Still Present Pain Scale Rating Of: 2 Location Of Pain/Discomfort: Suprapubic Radiation Of Pain To:: None Past Medical History Reviewed: Historical Data, Nursing Documentation, Vital Signs Vital Signs: Last Vital Signs Temp 97.9 F 02/15/17 13:50 Pulse 78 02/15/17 13:50 Resp 18 02/15/17 13:50 BP 110/75 02/15/17 13:50 Pulse Ox 100 02/15/17 15:51 - Medical History PMH: No Chronic Diseases Surgical History: Appendectomy (2016) Family History: States: Unknown Family Hx - Social History Hx Tobacco Use: No Hx Alcohol Use: No Hx Substance Use: No - Immunization History Hx Tetanus Toxoid Vaccination: No Hx Influenza Vaccination: No Hx Pneumococcal Vaccination: No Review Of Systems Except As Marked, All Systems Reviewed And Found Negative. Constitutional: Negative for: Fever Gastrointestinal: Positive for: Abdominal Pain, Diarrhea. Negative for: Nausea , Vomiting Genitourinary: Negative for: Dysuria, Frequency Neurological: Negative for: Weakness, Numbness Physical Exam - Physical Exam Appears: Well, Non-toxic, No Acute Distress Skin: Normal Color, Warm, Dry Head: Atraumatic, Normacephalic Eye(s): bilateral: Normal Inspection Ear(s): Bilateral: Normal Nose: Normal Oral Mucosa: Moist Tongue: Normal Appearing Lips: Normal Appearing Gingiva: Normal Appearing Neck: Normal Chest: Symmetrical Cardiovascular: Rhythm Regular Respiratory: Normal Breath Sounds Gastrointestinal/Abdominal: Bowel Sounds, Soft, Tenderness (mild suprapubic), No Rebound, No Hernia, No Ascites Back: Normal Inspection, No CVA Tenderness, No Vertebral Tenderness, No Muscle Spasm, No Paraspinal Tenderness Pelvic: Normal External Exam, Normal Speculum Exam, No Vaginal Bleeding, Vaginal Discharge (scant whitish-yellowish d/c, no smell, no cottege cheeze like d/c. ), No Cervical Motion Tenderness, No Mass Extremity: No Normal ROM ED Course And Treatment O2 Sat by Pulse Oximetry: 100 Medical Decision Making Medical Decision Making: gc/chlam cx ordred. UA reviewed, pt has no dysuria, urine cx sent. Most likely bacteria and wbc in urine seen from vaginitis. Disposition Counseled Patient/Family Regarding: Studies Performed, Diagnosis, Need For Followup, Rx Given - Disposition Referrals: [facility] [employer] [facility] [Outside] Disposition: HOME/ ROUTINE Disposition Time: 14:01 Condition: STABLE Additional Instructions: FOLLOW UP WITH YOUR AUTO LOCATOR ON FRIDAY SCHEDULED. URINE CX, GC/CHLAMYDIA CX SENT. ADDITIONAL TESTING FOR HIV, SYPHILIS AND HERPES IS RECOMMENDED. IF SYMPTOMS GET WORSE OR ANY NEW CONCERNING SYMPTOMS DEVELOP RETURN TO ED. Instructions: Sexually Transmitted Diseases (ED), Safe Sex (ED), Vaginitis (ED) Forms: [email or web address] (Singaporean) - Clinical Impression Clinical Impression: Vaginitis
[2017-02-15 13:51] VITALS: BP 110/75; PULSE 78; RESP 18; TEMP 97.9
[2017-02-15 14:04] VITALS: O2SAT 100
== END 2017-02-15 14:30 | disposition home or self-care (01) ==
LOC: C.ER 11:24
DX: N76.0 Acute vaginitis (principal)
CPT/HCPCS: 81001; 84703; 87081; 87086; 87491; 87591; 96372; 99284; J0696

== ENCOUNTER 2017-05-02 17:59 | Emergency (ER) | payer SELFPAY ==
[2017-05-02 18:06] VITALS: BMI 21.4
[2017-05-02 18:08] VITALS: TEMP 98
--- NOTE | 2017-05-02 18:43 | C.PDOC ---
History Of Present Illness <Cristy Sánchez - Last Filed: 05/02/17 19:54> <Scott Kamara - Last Filed: 05/03/17 00:03> Patient is a 22 year old female with no past medical history, who presents to the ED with complaints of suprapubic pelvic pain that started approximately 3 days ago. The pain is described as sharp and cramping that became worse last night and today. She has tried taking ibuprofen with minimal relief. She says she has this pain every other month, approximately 3-5 days prior to menstruation. She also complains of nausea and diarrhea for the past 3 days, about 3 times daily. Patient's LMP was 04/03/17, and states she has a normal monthly menstrual cycle. Patient denies being and sexually active at this time. Patient denies STI history, however, states she has been treated for a vaginal infection the last time she was in the ER. Patient denies vaginal discharge, vaginal bleeding, chest pain, abdominal pain, vomiting, fevers, headaches, leg pain. PMHx: denies SurgHx: appendectomy, 2015 FamHx: adopted, unknown family hx SocHx: denies tobacco and drug use; admits to social alcohol use Allergies: NKDA Medications: none (Cristy Sánchez) History Per: Patient History/Exam Limitations: no limitations Onset/Duration Of Symptoms: Days Current Symptoms Are (Timing): Still Present Severity: Moderate Location Of Pain/Discomfort: Suprapubic Radiation Of Pain To:: Back (lower, sacral) Quality Of Discomfort: Sharp, Cramping Associated Symptoms: Nausea, Diarrhea, Back Pain (lower, sacral). denies: Fever , Chills, Vomiting, Constipation, Urinary Symptoms Exacerbating Factors: None Last Bowel Movement: Today Additional History Per: Patient Abnormal Vaginal Bleeding: No Last Menstral Period: 04/03/17 : 0 Para: 0 Miscarriage: 0 <Cristy Sánchez - Last Filed: 05/02/17 19:54> <Scott Kamara - Last Filed: 05/03/17 00:03> Time Seen by Provider: 05/02/17 18:21 Chief Complaint (Nursing): Abdominal Pain Past Medical History - Medical History PMH: No Chronic Diseases Surgical History: Appendectomy (2016) Family History: States: Unknown Family Hx - Social History Hx Tobacco Use: No Hx Alcohol Use: Yes (social) Hx Substance Use: No - Immunization History Hx Tetanus Toxoid Vaccination: No Hx Influenza Vaccination: No Hx Pneumococcal Vaccination: No <Cristy Sánchez - Last Filed: 05/02/17 19:54> Vital Signs: Last Vital Signs Temp 98 F 05/02/17 20:06 Pulse 78 05/02/17 20:06 Resp 16 05/02/17 20:06 BP 135/69 05/02/17 20:06 Pulse Ox 98 05/02/17 20:06 Review Of Systems Constitutional: Negative for: Fever, Chills, Sweats, Weakness Cardiovascular: Negative for: Chest Pain, Palpitations, Edema, Light Headedness Respiratory: Negative for: Cough, Shortness of Breath Gastrointestinal: Positive for: Nausea, Diarrhea. Negative for: Vomiting, Abdominal Pain, Constipation, Melena, Rectal Pain Genitourinary: Positive for: Pelvic Pain (suprapubic, midline). Negative for: Dysuria, Frequency, Hematuria, Vaginal Discharge, Vaginal Bleeding Musculoskeletal: Positive for: Back Pain Skin: Negative for: Rash Neurological: Negative for: Dizziness <Cristy Sánchez - Last Filed: 05/02/17 19:54> Physical Exam - Physical Exam Appears: Non-toxic, No Acute Distress Skin: Normal Color, Warm, Dry Head: Atraumatic, Normacephalic Eye(s): bilateral: Normal Inspection, EOMI Lymphatic: No Inguinal Node Tenderness Cardiovascular: Rhythm Regular, No Edema, No Murmur Respiratory: Normal Breath Sounds, No Rales, No Rhonchi, No Wheezing Gastrointestinal/Abdominal: Bowel Sounds, Soft, Tenderness (suprapubic pain with palpation- sharp, cramping) Back: Normal Inspection, No CVA Tenderness Extremity: Normal ROM, No Tenderness, No Pedal Edema Extremity: Bilateral: Normal ROM Pulses: Left Dorsalis Pedis: Normal, Right Dorsalis Pedis: Normal Neurological/Psych: Oriented x3, Normal Speech <Cristy Sánchez - Last Filed: 05/02/17 19:54> ED Course And Treatment - Laboratory Results Result Diagrams: 05/02/17 19:15 O2 Sat by Pulse Oximetry: 100 <Cristy Sánchez - Last Filed: 05/02/17 19:54> - Laboratory Results Result Diagrams: 05/02/17 19:15 05/02/17 20:03 <Scott Kamara - Last Filed: 05/03/17 00:03> Medical Decision Making <Cristy Sánchez - Last Filed: 05/02/17 19:54> <Scott Kamara - Last Filed: 05/03/17 00:03> Medical Decision Making: Ordered: - Labs - UA - Urine - Ibuprofen for pain UA was normal; Urine negative. Labs within normal range. Suprapubic pains likely secondary to Dysmenorrhea. (Cristy Sánchez) Disposition Discussed With : Scott Kamara Counseled Patient/Family Regarding: Diagnosis, Need For Followup <Cristy Sánchez - Last Filed: 05/02/17 19:54> Doctor Will See Patient In The: Office Counseled Patient/Family Regarding: Diagnosis, Need For Followup - Disposition Disposition Time: 20:00 <Scott Kamara - Last Filed: 05/03/17 00:03> - Disposition Referrals: [facility] [Outside] [place] [facility] [Outside] Disposition: HOME/ ROUTINE Condition: GOOD Additional Instructions: expect 4-5 days of lower abdominal cramps prior to your menstrual period Take Motrin/Advil 400-600 mg every 6 hours as needed- do not take in excess: irritates the stomach Follow-up in our outpatient [facility] for your [facility] care as needed. Instructions: Menstrual Cramps (DC) Forms: [employer] (Hungarian), Work Excuse - Clinical Impression Clinical Impression: Dysmenorrhea
[2017-05-02 19:21] LABS: BASO % 0.4 % (0.0-2.0); EOS # 0.1 K/uL (0.0-0.7); EOS % 1.9 % (0.0-4.0); HEMOGLOBIN 12.3 g/dL (11.0-16.0); LYMPH # 1.9 K/uL (1.0-4.3); LYMPH % 30.1 % (20.0-40.0); MEAN CELL VOLUME 94.1 fL (81.0-99.0); MEAN CORPUSCULAR HEMOGLOBIN 32.1 pg (27.0-31.0); MEAN CORPUSCULAR HGB CONC 34.1 g/dL (33.0-37.0); MEAN PLATELET VOLUME 9.5 fL (7.2-11.7); MONO # 0.3 K/uL (0.0-0.8); NEUT % 62.6 % (50.0-75.0); NRBC % 0.1 % (0.0-2.0); RBC 3.85 Mil/uL (3.80-5.20); RED CELL DISTRIBUTION WIDTH 12.8 % (11.5-14.5); SQUAMOUS EPITHIAL 3 /hpf (0-5); URINE BILIRUBIN NEGATIVE (NEGATIVE); URINE BLOOD NEGATIVE (NEGATIVE); URINE CLARITY Clear (Clear); URINE COLOR Yellow (YELLOW); URINE GLUCOSE (UA) NORMAL (Normal); URINE LEUKOCYTE ESTERASE NEG Leu/uL (Negative); URINE NITRATE NEGATIVE (NEGATIVE); URINE PROTEIN NEGATIVE (NEGATIVE); URINE UROBILINOGEN NORMAL mg/dL (0.2-1.0); WHITE BLOOD COUNT 6.4 K/uL (4.8-10.8)
[2017-05-02 19:30] LABS: ALB/GLOB RATIO 1.2 (1.0-2.1); ALBUMIN 3.6 g/dL (3.5-5.0); ALT/SGPT 17 U/L (9-52); AST/SGOT 23 U/L (14-36); BLOOD UREA NITROGEN 11 mg/dL (7-17); CALCIUM 8.7 mg/dl (8.6-10.4)
[2017-05-02 20:06] VITALS: BP 135/69; PULSE 78; RESP 16; O2SAT 98
[2017-05-02 20:09] LABS: GFR AFRICAN-AMERICAN > 60; GFR NON-AFRICAN AMERICAN > 60
== END 2017-05-02 20:16 | disposition home or self-care (01) ==
LOC: C.ER 17:59
DX: N94.6 Dysmenorrhea, unspecified (principal)

== ENCOUNTER 2017-06-20 16:48 | Emergency (ER) | payer SELFPAY ==
[2017-06-20 16:48] VITALS: BMI 21.4
[2017-06-20] MEDS ORDERED: Sodium Chloride 0.9% 1,000 ML IV ONE (17:39)
--- NOTE | 2017-06-20 17:47 | C.PDOC ---
History Of Present Illness 22 y/o female presents to ED with c/o abdominal discomfort since this morning possibly related to having 1 glass of wine last nigh as per patient. Today is the 13th visit for patient to ED for similar abdominal complaints and prior episodes have been related to menses but today patient reports menses ended 4 days ago. Prior recomendations to take Motrin for abd discomfort, but has taken none today. Patient states she does not eat food on a regular basis because she does not get hungry so drinks Ensure daily. Ate a buttered roll and Ensure yesterday. Patient adamantly denies any substance abuse or alcohol today noting she works for the [employer] at [employer]. Currently denies fever, chills, nausea, vomiting, diarrhea or any other complaints at this time. Time Seen by Provider: 06/20/17 17:28 Chief Complaint (Nursing): Abdominal Pain History Per: Patient History/Exam Limitations: no limitations Onset/Duration Of Symptoms: Days Current Symptoms Are (Timing): Still Present Location Of Pain/Discomfort: Diffuse Past Medical History Reviewed: Historical Data, Nursing Documentation, Vital Signs Vital Signs: Last Vital Signs Temp 97.8 F 06/20/17 18:53 Pulse 84 06/20/17 18:53 Resp 18 06/20/17 18:53 BP 119/80 06/20/17 18:53 Pulse Ox 99 06/20/17 18:53 - Medical History PMH: No Chronic Diseases Surgical History: Appendectomy (2016) Family History: States: No Known Family Hx - Social History Hx Tobacco Use: No Hx Alcohol Use: Yes (social) Hx Substance Use: No - Immunization History Hx Tetanus Toxoid Vaccination: No Hx Influenza Vaccination: No Hx Pneumococcal Vaccination: No Review Of Systems Constitutional: Negative for: Fever, Chills Gastrointestinal: Positive for: Abdominal Pain. Negative for: Nausea, Vomiting , Diarrhea Genitourinary: Negative for: Dysuria Musculoskeletal: Negative for: Back Pain Skin: Negative for: Rash Physical Exam - Physical Exam Appears: Non-toxic, Other (Petite) Skin: Warm, Dry, No Rash Head: Atraumatic, Normacephalic Eye(s): bilateral: Normal Inspection Oral Mucosa: Moist Neck: Normal ROM, Supple Cardiovascular: Rhythm Regular Respiratory: Normal Breath Sounds, No Rales, No Rhonchi, No Wheezing Gastrointestinal/Abdominal: Soft, No Tenderness, No Guarding, No Rebound Back: No CVA Tenderness Extremity: Normal ROM, Capillary Refill (<2 seconds) Neurological/Psych: Oriented x3, Normal Speech, Normal Cognition ED Course And Treatment - Laboratory Results Result Diagrams: 06/20/17 18:02 06/20/17 18:02 Lab Interpretation: Abnormal (tox + THC) Urine POC: Negative O2 Sat by Pulse Oximetry: 100 (RA) Pulse Ox Interpretation: Normal - Radiology CXR: Interpreted by Me CXR Interpretation: Yes: No Acute Disease - Other Rad abd x 2 X-Ray: Interpreted by Me (+FOS) Progress Note: IVF, toradol Reevaluation Time: 18:35 Reassessment Condition: Improved Medical Decision Making Medical Decision Making: chronic constipation, cannabis abuse. Disposition Doctor Will See Patient In The: Office Counseled Patient/Family Regarding: Studies Performed, Diagnosis - Disposition Referrals: [facility] [Outside] [facility] [Outside] Disposition: HOME/ ROUTINE Disposition Time: 18:36 Condition: GOOD Additional Instructions: constipation: drink a bottle of laxative now: recommend Mag Citrate- and re-evaluate your abdominal discomfort after using the bathroom 2-3 times eat 7 fresh fruits and vegetables daily Ensure alone is VERY constipating- low in dietary fiber occasional laxatives as needed laboratory tests negative: blood, urine, abnormal: + THC/cannabis Cannabis abuse: beware of long tem use and paranoia/anxiety Instructions: Constipation in Adults, Marijuana Use and Addiction (DC) Forms: [employer] (Burkinan), Work Excuse - Clinical Impression Clinical Impression: Colicky periumbilical abdominal pain, Cannabis abuse - Scribe Statement The provider has reviewed the documentation as recorded by the Anastasiya Lovell All medical record entries made by the Scribjose were at my direction and personally dictated by me. I have reviewed the chart and agree that the record accurately reflects my personal performance of the history, physical exam, medical decision making, and the department course for this patient. I have also personally directed, reviewed, and agree with the discharge instructions and disposition.
[2017-06-20] MEDS ORDERED: Sodium Chloride 0.9% 1,000 ML ONE (17:51)
[2017-06-20 18:05] LABS: SQUAMOUS EPITHIAL 1 /hpf (0-5); URINE BILIRUBIN NEGATIVE (NEGATIVE); URINE BLOOD NEGATIVE (NEGATIVE); URINE CLARITY Clear (Clear); URINE COLOR Yellow (YELLOW); URINE GLUCOSE (UA) NORMAL (Normal); URINE LEUKOCYTE ESTERASE NEG Leu/uL (Negative); URINE PROTEIN NEGATIVE (NEGATIVE); URINE UROBILINOGEN NORMAL mg/dL (0.2-1.0)
[2017-06-20 18:06] LABS: HCG,QUALITATIVE URINE NEGATIVE (NEGATIVE)
[2017-06-20 18:07] LABS: BASO % 0.5 % (0.0-2.0); EOS % 0.6 % (0.0-4.0); HEMOGLOBIN 12.7 g/dL (11.0-16.0); LYMPH # 1.1 K/uL (1.0-4.3); LYMPH % 16.5 % (20.0-40.0); MEAN CELL VOLUME 94.5 fL (81.0-99.0); MEAN CORPUSCULAR HEMOGLOBIN 31.4 pg (27.0-31.0); MEAN CORPUSCULAR HGB CONC 33.2 g/dL (33.0-37.0); MEAN PLATELET VOLUME 8.8 fL (7.2-11.7); MONO # 0.3 K/uL (0.0-0.8); MONO % 5.1 % (0.0-10.0); NEUT # 5.2 K/uL (1.8-7.0); NEUT % 77.3 % (50.0-75.0); RBC 4.04 Mil/uL (3.80-5.20); RED CELL DISTRIBUTION WIDTH 12.8 % (11.5-14.5); WHITE BLOOD COUNT 6.7 K/uL (4.8-10.8)
[2017-06-20 18:16] LABS: BARBITURATES, UR NEGATIVE (NEGATIVE); BENZODIAZEPINES, UR NEGATIVE (NEGATIVE); OPIATES, UR NEGATIVE (NEGATIVE); PHENCYCLIDINE, UR NEGATIVE (NEGATIVE)
[2017-06-20 18:18] LABS: ALB/GLOB RATIO 1.3 (1.0-2.1); ALT/SGPT 17 U/L (9-52); AST/SGOT 18 U/L (14-36); BLOOD UREA NITROGEN 9 mg/dL (7-17); CALCIUM 8.2 mg/dl (8.6-10.4); GFR AFRICAN-AMERICAN > 60; GFR NON-AFRICAN AMERICAN > 60; LIPASE 14 U/L (23-300)
[2017-06-20 18:54] VITALS: BP 119/80; PULSE 84; RESP 18; TEMP 97.8
[2017-06-20 19:02] VITALS: O2SAT 100
--- NOTE | 2017-06-21 08:58 | RAD ---
PROCEDURE: Radiographs of the chest and abdomen (obstructive series) HISTORY: abd pain COMPARISON: No prior. TECHNIQUE: AP radiograph of the chest, with upright and supine radiographs of the abdomen. FINDINGS: CHEST: Lungs: Clear. Cardiovascular: Normal size heart. No pulmonary vascular congestion. Pleura: No pleural fluid. No pneumothorax. Other findings: None. ABDOMEN AND PELVIS: Bowel: Unremarkable bowel gas pattern. No evidence of mechanical obstruction. Free air: None. Bones: Unremarkable. Other findings: 3-4 small calcifications in the inferior pelvis may reflect phleboliths but are nonspecific. Lucency in the pelvic region likely reflects tampon insertion. IMPRESSION: Nonobstructive bowel gas pattern is appreciated with questionable phleboliths the inferior pelvis soft tissues. Normal appearing single frontal chest radiograph.
== END 2017-06-20 18:55 | disposition home or self-care (01) ==
LOC: C.ER 16:48
DX: R10.33 Periumbilical pain (principal); F12.10 Cannabis abuse, uncomplicated
CPT/HCPCS: 74022; 80053; 81001; 83690; 84703; 85025; 96361; 96374; 99284; G0480; J1885; J7040

== ENCOUNTER 2017-07-05 18:43 | Emergency (ER) | payer SELFPAY ==
[2017-07-05 18:44] VITALS: BMI 21.4
[2017-07-05 18:59] VITALS: BP 114/79; PULSE 97; TEMP 98.9; O2SAT 97
--- NOTE | 2017-07-05 19:49 | C.PDOC ---
History Of Present Illness 22 yo female w/o significant PMHx come in for evaluation of intermittent hoves to neck and B/L eyes area for past 2-3 days. Pt sts, rash comes and goes. Otherwise, pt denies previous hx of seasonal or food allergy. denies known exposure to allergen, denies fever, chills, recent illness or medication use, throat tightness or swelling, CP, SOB, dyspnea, drooling, diaphoresis, palpitation, abd. pain, N/V, denies any other active complaints. Ambulate to Ed for evaluation, no obvious rash noted at present time. Time Seen by Provider: 07/05/17 19:22 Chief Complaint (Nursing): Allergic Reaction History Per: Patient Onset/Duration Of Symptoms: Intermittent Episodes Past Medical History Reviewed: Historical Data, Nursing Documentation, Vital Signs Vital Signs: Last Vital Signs Temp 98.9 F 07/05/17 18:55 Pulse 97 H 07/05/17 18:55 Resp 20 07/05/17 20:19 BP 114/79 07/05/17 18:55 Pulse Ox 97 07/05/17 19:49 - Medical History PMH: No Chronic Diseases Surgical History: Appendectomy (2016) Family History: States: Unknown Family Hx - Social History Hx Tobacco Use: No Hx Alcohol Use: Yes (social) Hx Substance Use: No - Immunization History Hx Tetanus Toxoid Vaccination: No Hx Influenza Vaccination: No Hx Pneumococcal Vaccination: No Review Of Systems Except As Marked, All Systems Reviewed And Found Negative. Constitutional: Negative for: Fever, Chills ENT: Negative for: Ear Discharge, Nose Discharge, Mouth Swelling, Throat Pain, Throat Swelling Cardiovascular: Negative for: Chest Pain, Palpitations Respiratory: Negative for: Cough, Shortness of Breath, Wheezing Gastrointestinal: Negative for: Nausea, Vomiting, Abdominal Pain, Diarrhea Genitourinary: Negative for: Incontinence Musculoskeletal: Negative for: Neck Pain, Back Pain Skin: Positive for: Rash Neurological: Negative for: Weakness, Numbness, Altered Mental Status, Headache , Dizziness Physical Exam - Physical Exam Appears: Well, Non-toxic, No Acute Distress Skin: Normal Color, Warm, Dry, Rash (scant urticaria Left lateral neck area. No edema, no erythema.) Head: Normacephalic Eye(s): bilateral: PERRL, EOMI Ear(s): Bilateral: Normal Nose: No Flaring, No Discharge Oral Mucosa: Moist, No Drooling Tongue: No Swelling Lips: No Swelling Throat: Normal, No Erythema, No Drooling, Other (uvula midline, no edema.) Neck: Trachea Midline, Supple Cardiovascular: Rhythm Regular, No Murmur Respiratory: No Decreased Breath Sounds, No Accessory Muscle Use, No Stridor, No Wheezing Gastrointestinal/Abdominal: Soft, No Tenderness, No Distention, No Guarding Extremity: Normal ROM, No Pedal Edema, No Deformity, No Swelling Neurological/Psych: Oriented x3, Normal Speech ED Course And Treatment O2 Sat by Pulse Oximetry: 97 Pulse Ox Interpretation: Normal Progress Note: On re-evaluation, pt is awake, comfortable, not in any apparent distress. Afebrile, hemodynamicaly stable. NOn-toxic, tolerate Po well in ED. PulsEOx 98% RA. neck: Supple, (-) menigeal sign. ENT: no acute findings, uvula midline no edema. Lungs: CTA B/L, BS equal B/L. ABd: benign, (-) guarding, (-) rebound. neurologicaly intact. Skin: scant urticaria noted. Pt Advised on course of ds. Ref. to f/u with PMD, card checker in 2-3 days for re- eval. retrun to ED if any worsening or new changes. Disposition Counseled Patient/Family Regarding: Diagnosis, Need For Followup, Rx Given - Disposition Referrals: [facility] [Outside] Disposition: HOME/ ROUTINE Disposition Time: 19:46 Condition: STABLE Prescriptions: DiphenhydrAMINE [Benadryl] 25 mg PO BID #10 cap Famotidine [Pepcid] 20 mg PO BID #10 tab Prednisone [Deltasone] 20 mg PO DAILY #3 tablet Instructions: Food Allergy Forms: [employer] (Ecuadorean), Work Excuse - Clinical Impression Clinical Impression: Allergic urticaria
[2017-07-05 20:20] VITALS: RESP 20
== END 2017-07-05 20:19 | disposition home or self-care (01) ==
LOC: C.ER 18:43
DX: L50.0 Allergic urticaria (principal)

== ENCOUNTER 2017-07-13 01:16 | Emergency (ER) | payer SELFPAY ==
[2017-07-13 01:17] VITALS: BMI 21.4
[2017-07-13 01:30] VITALS: TEMP 97.9
[2017-07-13] MEDS ORDERED: DiphenhydrAMINE 50 mg/ml Inj IM STA (01:40)
--- NOTE | 2017-07-13 01:43 | C.PDOC ---
History Of Present Illness 22 year old female presents to the ER with a complaint of swelling and redness to both eyelids. Patient reports she has a Hx of allergic reaction before in the past. Denies SOB or swelling of the throat. Chief Complaint (Nursing): Abnormal Skin Integrity History Per: Patient History/Exam Limitations: no limitations Onset/Duration Of Symptoms: Hrs Current Symptoms Are (Timing): Still Present Location Of Injury: Anterior: Face (eyelids) Quality Of Symptoms: Swollen Recent travel outside of the [place]: No Past Medical History Reviewed: Historical Data, Nursing Documentation, Vital Signs Vital Signs: Last Vital Signs Temp 97.9 F 07/13/17 01:26 Pulse 104 H 07/13/17 01:26 Resp 20 07/13/17 01:26 BP 110/72 07/13/17 01:26 Pulse Ox 97 07/13/17 01:50 Surgical History: Appendectomy (2016) Family History: States: Unknown Family Hx - Social History Hx Tobacco Use: No Hx Alcohol Use: Yes (social) Hx Substance Use: No - Immunization History Hx Tetanus Toxoid Vaccination: No Hx Influenza Vaccination: No Hx Pneumococcal Vaccination: No Review Of Systems Constitutional: Negative for: Fever, Chills Eyes: Positive for: Other (Eyelid swelling) ENT: Negative for: Mouth Swelling, Throat Pain Respiratory: Negative for: Shortness of Breath, Wheezing Physical Exam - Physical Exam Appears: Non-toxic Skin: Normal Color, Warm, Dry Head: Atraumatic, Normacephalic Eye(s): bilateral: PERRL, EOMI, Other (Eyelid swelling, no conjunctiva swelling) Oral Mucosa: Moist Tongue: Normal Appearing, No Swelling Lips: Normal Appearing, No Swelling Throat: Normal, No Other (Swelling) Chest: Symmetrical, No Tenderness Cardiovascular: Rhythm Regular Respiratory: Normal Breath Sounds, No Rales, No Rhonchi, No Stridor, No Wheezing Gastrointestinal/Abdominal: Soft, No Tenderness Neurological/Psych: Oriented x3, Normal Speech ED Course And Treatment O2 Sat by Pulse Oximetry: 97 (Room air) Pulse Ox Interpretation: Normal Disposition Counseled Patient/Family Regarding: Diagnosis - Disposition Referrals: [facility] [Outside] Disposition: HOME/ ROUTINE Disposition Time: 01:42 Condition: STABLE Prescriptions: DiphenhydrAMINE [Benadryl] 25 mg PO Q6 #20 cap Famotidine [Pepcid] 20 mg PO BID #20 tab Methylprednisolone [Medrol Dose Pack (21 tabs)] 4 mg PO DAILY #21 mg Instructions: Hives Forms: [facility] (Frisian) - POA Present On Arrival: None - Clinical Impression Clinical Impression: Allergy - Scribe Statement The provider has reviewed the documentation as recorded by the Scribe Arnaldo Guidry All medical record entries made by the Scribe were at my direction and personally dictated by me. I have reviewed the chart and agree that the record accurately reflects my personal performance of the history, physical exam, medical decision making, and the department course for this patient. I have also personally directed, reviewed, and agree with the discharge instructions and disposition.
[2017-07-13] MEDS ORDERED: DiphenhydrAMINE 50 mg/ml Inj ONE (01:53)
[2017-07-13 02:10] VITALS: BP 120/80; PULSE 80; RESP 14; O2SAT 99
== END 2017-07-13 02:10 | disposition home or self-care (01) ==
LOC: C.ER 01:16
DX: T78.40XA Allergy, unspecified, initial encounter (principal)
CPT/HCPCS: 96372; 99283; J1200

== ENCOUNTER 2017-08-12 23:43 | Emergency (ER) | payer SELFPAY ==
[2017-08-12 23:43] VITALS: BMI 21.4
[2017-08-12 23:50] VITALS: BP 117/80; PULSE 100; RESP 20; TEMP 99; O2SAT 99
--- NOTE | 2017-08-13 00:14 | C.PDOC ---
History Of Present Illness 22 year old female presents to the ED c/o " heartburn for the past 3 weeks that is worse in the morning". Patient states discomfort resolved throughout the day. Patient usually feels relief taking Tumbs but no longer helping which prompted the visit to the ED. Patient denies fever, chills, nausea, vomit, diarrhea, rash, recent travel, sick contacts, SOB, CP. Patient is asymptomatic while in the ED. Patient's LMP was 07/17/17. Time Seen by Provider: 08/12/17 23:55 Chief Complaint (Nursing): Abdominal Pain History Per: Patient History/Exam Limitations: no limitations Onset/Duration Of Symptoms: Days Current Symptoms Are (Timing): Still Present Severity: None Location Of Pain/Discomfort: Diffuse Radiation Of Pain To:: None Quality Of Discomfort: "Pain" Associated Symptoms: denies: Nausea, Vomiting, Diarrhea Exacerbating Factors: None Alleviating Factors: OTC Meds Recent travel outside of the [place]: No Additional History Per: Patient Abnormal Vaginal Bleeding: No Past Medical History Reviewed: Historical Data, Nursing Documentation, Vital Signs Vital Signs: Last Vital Signs Temp 99 F 08/12/17 23:47 Pulse 100 H 08/12/17 23:47 Resp 20 08/12/17 23:47 BP 117/80 08/12/17 23:47 Pulse Ox 99 08/13/17 00:14 - Medical History PMH: No Chronic Diseases Surgical History: Appendectomy (2016) Family History: States: Unknown Family Hx - Social History Hx Tobacco Use: No Hx Alcohol Use: No Hx Substance Use: No - Immunization History Hx Tetanus Toxoid Vaccination: No Hx Influenza Vaccination: No Hx Pneumococcal Vaccination: No Review Of Systems Constitutional: Negative for: Fever, Chills Cardiovascular: Negative for: Chest Pain Respiratory: Negative for: Shortness of Breath Gastrointestinal: Positive for: Abdominal Pain. Negative for: Nausea, Vomiting , Diarrhea Musculoskeletal: Negative for: Back Pain Neurological: Negative for: Weakness, Numbness Physical Exam - Physical Exam Appears: Non-toxic, No Acute Distress Skin: Normal Color, Warm, Dry Head: Atraumatic, Normacephalic Eye(s): bilateral: Normal Inspection Oral Mucosa: Moist Neck: Normal ROM, Supple Chest: Symmetrical Cardiovascular: Rhythm Regular Respiratory: Normal Breath Sounds, No Rales, No Rhonchi, No Wheezing Gastrointestinal/Abdominal: Soft, No Tenderness, No Guarding, No Rebound Extremity: Normal ROM, No Tenderness, No Swelling Neurological/Psych: Oriented x3, Normal Speech Gait: Steady ED Course And Treatment O2 Sat by Pulse Oximetry: 99 (ON RA) Pulse Ox Interpretation: Normal Progress Note: Patient's LMP was on 07/17/17 refused to do a test in the ED. Patient was advised to follow up with the clinic to get possible GI referall. Disposition Counseled Patient/Family Regarding: Diagnosis, Need For Followup, Rx Given - Disposition Referrals: [email or web address] [Outside] Rachele King MD [Staff Provider] - Disposition: HOME/ ROUTINE Disposition Time: 00:12 Condition: STABLE Additional Instructions: Please follow up in clinic Take maalox as needed for heartburn Return to ER if worse Instructions: Acid Reflux (Gastroesophageal Reflux Disease), Adult (DC) Forms: [employer] [facility] (Syriac), Work Excuse - Clinical Impression Clinical Impression: Heartburn symptom - PA / BI MANAGER / Resident Statement MD/DO has reviewed & agrees with the documentation as recorded. - Scribe Statement The provider has reviewed the documentation as recorded by the Scribe Efe Espinoza All medical record entries made by the Scribe were at my direction and personally dictated by me. I have reviewed the chart and agree that the record accurately reflects my personal performance of the history, physical exam, medical decision making, and the department course for this patient. I have also personally directed, reviewed, and agree with the discharge instructions and disposition.
== END 2017-08-13 00:33 | disposition home or self-care (01) ==
LOC: C.ER 23:43
DX: R12 Heartburn (principal)

== ENCOUNTER 2017-09-08 00:06 | Emergency (ER) | payer SELFPAY ==
[2017-09-08 00:06] VITALS: BMI 21.4
[2017-09-08 00:26] VITALS: TEMP 98.9; O2SAT 100
[2017-09-08 01:22] LABS: SQUAMOUS EPITHIAL 1 /hpf (0-5); URINE BILIRUBIN NEGATIVE (NEGATIVE); URINE BLOOD NEGATIVE (NEGATIVE); URINE CLARITY Clear (Clear); URINE COLOR Yellow (YELLOW); URINE GLUCOSE (UA) NORMAL (Normal); URINE LEUKOCYTE ESTERASE NEG Leu/uL (Negative); URINE PROTEIN NEGATIVE (NEGATIVE); URINE UROBILINOGEN NORMAL mg/dL (0.2-1.0)
[2017-09-08 01:32] LABS: HCG,QUALITATIVE URINE NEGATIVE (NEGATIVE)
--- NOTE | 2017-09-08 01:52 | C.PDOC ---
History Of Present Illness 22 year old female presets to the ED c/o LLQ pain that worsens with movement, sitting or standing. Patient reports she is has not been sexually active for the past 3 months. patient denies fever, chills, nausea, vomit, diarrhea, dysuria, hematuria, vaginal discharge, constipation. Time Seen by Provider: 09/08/17 00:43 Chief Complaint (Nursing): Abdominal Pain History Per: Patient History/Exam Limitations: no limitations Onset/Duration Of Symptoms: Days Current Symptoms Are (Timing): Still Present Location Of Pain/Discomfort: LLQ Radiation Of Pain To:: None Quality Of Discomfort: "Pain" Associated Symptoms: denies: Nausea, Vomiting, Diarrhea, Urinary Symptoms Exacerbating Factors: Movement, Walking Alleviating Factors: None Recent travel outside of the [place]: No Additional History Per: Patient Abnormal Vaginal Bleeding: No Past Medical History Reviewed: Historical Data, Nursing Documentation, Vital Signs Vital Signs: Last Vital Signs Temp 98.9 F 09/08/17 02:33 Pulse 77 09/08/17 02:33 Resp 20 09/08/17 02:33 BP 106/67 09/08/17 02:33 Pulse Ox 100 09/08/17 03:12 - Medical History PMH: No Chronic Diseases Surgical History: Appendectomy (2016) Family History: States: Unknown Family Hx - Social History Hx Tobacco Use: No Hx Alcohol Use: Yes Hx Substance Use: No - Immunization History Hx Tetanus Toxoid Vaccination: No Hx Influenza Vaccination: No Hx Pneumococcal Vaccination: No Review Of Systems Constitutional: Negative for: Fever, Chills Cardiovascular: Negative for: Chest Pain Respiratory: Negative for: Cough, Shortness of Breath Gastrointestinal: Positive for: Abdominal Pain. Negative for: Nausea, Vomiting Genitourinary: Negative for: Dysuria, Hematuria Musculoskeletal: Negative for: Back Pain Skin: Negative for: Rash Neurological: Negative for: Weakness, Numbness Physical Exam - Physical Exam Appears: Non-toxic, No Acute Distress Skin: Normal Color, Warm, Dry Head: Atraumatic, Normacephalic Eye(s): bilateral: Normal Inspection Oral Mucosa: Moist Neck: Normal ROM, Supple Chest: Symmetrical Cardiovascular: Rhythm Regular Respiratory: Normal Breath Sounds, No Rales, No Rhonchi, No Wheezing Gastrointestinal/Abdominal: Soft, Tenderness (minimal left suprapubic), No Guarding, No Rebound Back: No CVA Tenderness Pelvic: Normal External Exam, Normal Bimanual Exam, No Vaginal Bleeding, Vaginal Discharge (minimal whitish ), No Cervical Motion Tenderness, No Adnexal Tenderness Extremity: Normal ROM, No Tenderness, No Swelling Neurological/Psych: Oriented x3, Normal Speech Gait: Steady ED Course And Treatment O2 Sat by Pulse Oximetry: 100 (ON RA) Pulse Ox Interpretation: Normal Progress Note: Plan: - Motrin 400 mg PO. - UA (normal). Patient reports pain has improved, remains in NAD while in the ED. Patient is advised to follow up with PMD in 1-2 days for further evaluation. Disposition - Disposition Referrals: [facility] [Outside] [facility] [Outside] Disposition: HOME/ ROUTINE Disposition Time: 01:48 Condition: STABLE Additional Instructions: Take motrin for pain Follow up with [facility] Return to ER if fever, increasing pain or worse Prescriptions: Ibuprofen [Motrin] 1 tab PO TID PRN #20 tab PRN Reason: Pain Instructions: Acute Pelvic Pain (DC) Forms: [facility] (Macedonian), School Excuse, Work Excuse - Clinical Impression Clinical Impression: Pelvic pain - PA / HOUSESMITH / Resident Statement MD/DO has reviewed & agrees with the documentation as recorded. - Scribe Statement The provider has reviewed the documentation as recorded by the Scribe Efe Espinoza All medical record entries made by the Scribe were at my direction and personally dictated by me. I have reviewed the chart and agree that the record accurately reflects my personal performance of the history, physical exam, medical decision making, and the department course for this patient. I have also personally directed, reviewed, and agree with the discharge instructions and disposition.
[2017-09-08 02:34] VITALS: BP 106/67; PULSE 77; RESP 20
== END 2017-09-08 02:34 | disposition home or self-care (01) ==
LOC: C.ER 00:06 → SUPCPDRO 00:06 → C.ER 02:34
DX: R10.2 Pelvic and perineal pain (principal)

== ENCOUNTER 2017-09-27 20:39 | Emergency (ER) | payer SELFPAY ==
[2017-09-27 20:39] VITALS: BMI 21.4
[2017-09-27 20:50] VITALS: BP 100/68; PULSE 90; RESP 20; TEMP 98.6; O2SAT 99
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
== END 2017-09-27 23:03 | disposition home or self-care (01) ==
LOC: C.ER 20:39
DX: S00.83XA Contusion of other part of head, initial encounter (principal); Y09 Assault by unspecified means